=== PATIENT | female | born 1970 ===

== ENCOUNTER 2016-04-26 08:55 | Inpatient (IN) ==
[2016-04-26] MEDS ORDERED: MORPHINE 2 MG/1 ML SYRINGE IV STA (09:50)
[2016-04-26] MEDS ORDERED: ASPIRIN 325 MG TABLET PO STA (09:50)
[2016-04-26] MEDS ORDERED: NITROGLYCERIN SL 0.4 MG TABLET SL PRN (09:50)
[2016-04-26] MEDS ORDERED: ONDANSETRON 4 MG/2 ML VIAL IV STA (09:50)
--- NOTE | 2016-04-26 09:53 | EKG Report ---
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
[2016-04-26 10:05] LABS: Basophils % 0.3 % (0.0-0.8); Eosinophils # 0.1 10*3/uL (0.0-0.87); Hematocrit 37.6 VOL% (35.7-47.0); Hemoglobin 12.1 GM/DL (12.0-16.0); Immature Granulocytes % 0.3 %; Immature Granulocytes Absolute 0.02 #; Lymphocytes # 1.6 10*3/uL (1.4-4.0); Mean Corpuscular HGB Conc 32.2 GM/DL (32-36); Mean Corpuscular Hemoglobin 29 PG (27-34); Mean Platelet Volume 10.5 FL (9.6-12.0); Monocytes # 0.4 10*3/uL (0.11-0.8); Monocytes % 5.8 % (1.7-12.7); Neutrophils # 3.9 10*3/uL (1.4-7.4); Neutrophils % 64.6 % (38.7-73.9); Platelet Count 294 10*3/uL (130-400); Red Blood Count 4.18 10*6/uL (3.8-5.5); Red Cell Distribution Width 12.3 % (9.3-17.3); White Blood Count 6.1 10*3/uL (4.5-13.71)
[2016-04-26] MEDS ORDERED: ONDANSETRON 4 MG/2 ML VIAL ONE (10:25)
[2016-04-26] MEDS ORDERED: ASPIRIN 325 MG TABLET ONE (10:26)
[2016-04-26] MEDS ORDERED: MORPHINE 2 MG/1 ML SYRINGE ONE (10:26)
--- NOTE | 2016-04-26 10:33 | XRay Report ---
History: Pain in chest and neck, radiating to left arm. History of hypertension Date: 04/26/2016 Study: Chest x-ray PA and lateral Comparison exam: No previous chest x-ray available The cardiomediastinal silhouette and pulmonary vasculature are unremarkable. The lungs and pleural spaces are clear. The osseous structures are unremarkable. Impression: No acute cardiopulmonary process PROCEDURE INTERPRETED AT [facility] DEPARTMENT OF RADIOLOGY Final Report Signed by: Dr. Nancy Gaona
[2016-04-26 10:48] LABS: Alanine Aminotransferase 23 U/L (13-56); Albumin 3.6 G/DL (3.4-5.0); Alkaline Phosphatase 97 U/L (45-117); Aspartate Amino Transferase 17 U/L (0-37); Bilirubin,Total < 0.39 MG/DL (0.2-1.0); Blood Urea Nitrogen 9 MG/DL (7-18); Calcium 8.6 MG/DL (8.5-10.1); Glucose 205 MG/DL (74-106); Magnesium 1.7 MG/DL (1.8-2.4); Osmolality,Calculated 285.3 MOS/KG (273-304); Sodium 141 MMOL/L (136-145); Total Protein 7.4 G/DL (6.4-8.3)
[2016-04-26] MEDS ORDERED: MAGNESIUM SULF RIDER 2 GM in PREMIX 1 EACH IV STA (12:09)
[2016-04-26] MEDS ORDERED: NITROGLYCERIN 2% OINT 1 INCH/GM PACK TOP STA (12:10)
--- NOTE | 2016-04-26 13:21 | EKG Report ---
Stationary ECG Study [facility] ER Test Date: 04/26/2016 1:19:09 PM Pat Name: CRESCENCIO FRIEDMAN Department: Room: Gender: F Dental Insurance Coordinator: DANILO : 1970 Requested by: Vanessa Shah Order Number: [id number] Reading MD: COCO ARAUZ Intervals [place] Rate: 73 P: 54 [place]: 152 QRS: 45 QRSD: 103 T: 51 QT: 418 QTc: 444 Interpretive Statements SINUS RHYTHM Electronically Signed On 04-26-16 14:02:07 HUMAN RESOURCE ASSISTANT by COCO ARAUZ [email or web address]
--- NOTE | 2016-04-26 13:26 | Emergency Department Note ---
Dung Amaya Jamie, am scribing for, and in the presence of, Vanessa Shah DO 09:45. IPablo Catherine, DO, personally performed the services described in this documentation, ascribed by Marc Razo in my presence, and it is both accurate and complete [id number] . Arrival - Arrival Chief Complaint: Chest Pain Stated Complaint: chest heaviness/ left shoulder pain ED Nursing Triage Note: C/O HAVING CHEST PAIN SINCE 1800 LAST PM, STATES SHE FEELS A FULLNESS IN HER CHEST AND HER NECK, DENIES HAVING NAUSEA., STATES THE PAIN IS RADIAITING TO THE LEFT ARM AND THE UPPER BACK , EKG OBTAINED AT TIME OF TRIAGE Mode of Arrival: Ambulatory Limitations: No Limitations Source: Patient, RN Notes Reviewed Time Seen by Provider: 04/26/16 09:10 - History of Present Illness HPI Narrative: patient here for evaluation of substernal chest pain and pressure - started yesterday and has persisted and is not improving and just does not feel well. Is a diabetic and has HTN and high cholesterol. She reports a fullness in her chest. Onset (ago): day(s) (1) Consistency: constant Severity: moderate Severity scale (1-10): 4 Quality: fullness Date of Last Menstrual Period: MENAPAUSE Allergies/Adverse Reactions: Allergies Allergy/AdvReac Type Severity Reaction Status Date / Time No Known Allergies Allergy Unverified 04/26/16 09:03 Home Medications: Home Medications Medication Instructions Recorded Confirmed Type Hum Insulin NPH/Reg Insulin Hm 20 unit SUBCUT BID 04/26/16 04/26/16 History [NovoLIN 70/30] Ibuprofen Tab [Motrin Tab] 800 mg PO TID 04/26/16 04/26/16 History Lisinopril 10 mg PO DAILY 04/26/16 04/26/16 History Metformin HCl 1,000 mg PO BID 04/26/16 04/26/16 History Oxycodone HCl/Acetaminophen 0.5 each PO BID PRN 04/26/16 04/26/16 History [Oxycodon-Acetaminophen 7.5-325] Pravastatin Sodium 40 mg PO BEDTIME 04/26/16 04/26/16 History glipiZIDE [Glipizide] 10 mg PO BID 04/26/16 04/26/16 History Review of System - Review of System 12 point system: reviewed and no additional remarkable complaints except as stated - Review of System Constitutional: Absent: chills, diaphoresis, fever, weakness Eyes: Absent: vision change Respiratory: Absent: cough, respiratory distress Cardiovascular: Present: chest pain. Absent: dyspnea on exertion Gastrointestinal: Absent: abdominal pain, nausea, vomiting, diarrhea, constipation Musculoskeletal: Present: arm pain (Left ), neck pain. Absent: joint swelling Skin: Absent: rash, change in color Neurological: Absent: headache, weakness, numbness, confusion Hematological/Lymphatic: Absent: easy bleeding ( ), easy bruising Medical,Surgical,& Family Hx - Medical History Cardio: History of: Hypertension Endocrine: History of: Diabetes Mellitus (IDDM), Diabetes Mellitus (NIDDM) - Surgical History Surgical History: noncontributory - Family History Family History: Reports;: Family Diabetes, Family Hypertension - Social History Smoking Status: Smoker, status unknown Frequency of Alcohol Use: None Type of Drug Use: None Marital Status: Unknown Functional capacity: independent ambulation Exam Vital Signs: Vital Signs Temperature 98.0 F 04/26/16 08:56 Pulse Rate 100 H 04/26/16 08:56 Respiratory Rate 20 04/26/16 08:56 Blood Pressure 176/78 04/26/16 08:56 O2 Sat by Pulse Oximetry 98 04/26/16 08:56 - General General appearance: alert, in no apparent distress - Head Head exam: Present: atraumatic, normocephalic, normal inspection - Eye Eye exam: Present: normal appearance, PERRL, EOMI - ENT ENT exam: Present: normal exam, normal oropharynx, mucous membranes moist - Neck Neck exam: Present: normal inspection, full ROM - Chest Chest inspection: Present: normal inspection, symmetric chest wall rise, other ( no reproducable pain to my exam) - Respiratory Respiratory exam: Present: normal lung sounds bilaterally - Cardiovascular Cardiovascular exam: Present: regular rate, normal rhythm, normal heart sounds - Abdominal Exam Abdominal exam: Present: soft, normal bowel sounds. Absent: tenderness, guarding, rebound, diminished bowel sounds - Extremities Exam Extremities exam: Present: normal inspection, full ROM, normal capillary refill. Absent: tenderness, pedal edema - Back Exam Back exam: Present: normal inspection, full ROM - Neurological Exam Neurological exam: Present: alert, oriented X3, CN II-XII intact - Psychiatric Psychiatric exam: Present: normal affect, normal mood - Skin Skin exam: Present: warm, dry, intact, normal color Course - Reevaluation(s) Reevaluation #1: she is some better - not really much change in the er and will need admission adn R/O due to her risk profile - Consultations Consultation #1: Dr. Gilbert Time: 13:00 Results - Labs CBC & BMP: 04/26/16 09:52 04/26/16 09:52 Lab Results: I have reviewed the patients labs - EKG EKG results: interpreted by ERMD, WNL, sinus rhythm - Impressions no acute process - Diagnostic Findings Procedure: Chest x-ray: report reviewed by me (normal) Disposition Clinical Impression: Chest pain Case discussed with: patient Disposition: Still a Patient Condition: Stable
--- NOTE | 2016-04-26 13:30 | Hospitalist History & Physical ---
Assessment and Plan (1) Chest pain Status: Acute Assessment and plan: Patient with atypical chest pain of unknown etiology sounds more GI to me but she's being admitted to rule out PR with serial isoenzymes and consult cardiology for ischemic screen Current Visit: Yes History of Present Illness Chief complaint: chest pain History of present illness: Ms. Cochran is a 46 year old female patient presents with chest pain she started having some chest pain last night she describes it as a full ulcer chest with up into her left shoulder she takes some pain medicine for low back pain she took some oxycodone he did not make the pain go away she had no associated diaphoresis or eating the pain does make her little bit short of breath she hasn't blacked out she has no palpitations. She's never had pain like this before Home Medications Medication Instructions Recorded Confirmed Type Hum Insulin NPH/Reg Insulin Hm 20 unit SUBCUT BID 04/26/16 04/26/16 History [NovoLIN 70/30] Ibuprofen Tab [Motrin Tab] 800 mg PO TID 04/26/16 04/26/16 History Lisinopril 10 mg PO DAILY 04/26/16 04/26/16 History Metformin HCl 1,000 mg PO BID 04/26/16 04/26/16 History Oxycodone HCl/Acetaminophen 0.5 each PO BID PRN 04/26/16 04/26/16 History [Oxycodon-Acetaminophen 7.5-325] Pravastatin Sodium 40 mg PO BEDTIME 04/26/16 04/26/16 History glipiZIDE [Glipizide] 10 mg PO BID 04/26/16 04/26/16 History Allergies Allergy/AdvReac Type Severity Reaction Status Date / Time No Known Allergies Allergy Unverified 04/26/16 09:03 Medical,Surgical,& Family Hx - Medical History Cardio: History of: Hypertension Endocrine: History of: Diabetes Mellitus (IDDM), Diabetes Mellitus (NIDDM) - Family History Family History: Reports;: Family Diabetes, Family Hypertension - Social History Smoking Status: Smoker, status unknown Frequency of Alcohol Use: None Type of Drug Use: None Review of systems: Constitutional: No fatigue or fever Eyes: No loss of vision or blurred vision Ears: No decreased hearing no ear pain Mouth no lip swelling or sore throat Cardiovascular see hpi Respiratory no cough or shortness of breath GI no abdominal pain or bloating or bleeding : No urinary frequency or hesitancy musculoskeletal: No Arthralgias or back pain Psychiatric: Confusion memory loss Endocrine: No polydipsia or polyuria Hematology: No easy bleeding or bruising 12 point review of systems otherwise unremarkable Exam - Constitutional Vitals: Period Temp Pulse Resp BP Sys/Hill Pulse Ox Last 24 Hr 98.0 F 100 20 176/78 98 Exam: Constitutional: Patient in no apparent distress. Patient is overweight Eyes: Conjunctivae and lids are normal Pupils equal round react to light and accommodation irises are normal HEENT: External ears and nose without lesions masses or scarring Oropharynx without erythema exudates or thrush Neck is supple without masses no jugular venous distention Lungs: Lungs are clear to auscultation and resonant percussion Cardiovascular: Heart auscultation regular rate and rhythm without murmur rub or gallop PMI in the midclavicular line by palpation carotid arteries 2+ without bruits bowel abdomen: Bowel sounds normoactive no masses no rebound or regular tenderness no organomegaly Lymphatic: No anterior posterior cervical or axillary adenopathy Musculoskeletal: No active synovitis no malalignment of the joints good range of motion of upper and lower extremities Skin : normal to inspection and palpation Neurologic: Cranial nerves II through XII intact motor sensory intact DTRs 2+ negative cerebellar signs Psychiatric: Oriented to person place and time normal memory normal mood and affect normal judgment Results - Labs CBC & BMP: 04/26/16 09:52 04/26/16 09:52
[2016-04-26] MEDS ORDERED: ACETAMINOPHEN PO PRN (14:28)
[2016-04-26] MEDS ORDERED: OXYCODONE HCL PO PRN (14:28)
[2016-04-26] MEDS ORDERED: [UNRECOGNIZED DRUG - OTHER] PO PRN (14:28)
[2016-04-26] MEDS ORDERED: ONDANSETRON 4 MG/2 ML VIAL IV PRN (14:28)
[2016-04-26] MEDS ORDERED: ACETAMINOPHEN 325 MG TABLET PO PRN (14:28)
[2016-04-26 15:13] LABS: Troponin I Only < 0.015 NG/ML (0.00-0.045)
[2016-04-26] MEDS: glipiZIDE 10 MG TABLET PO SCH (20:55)
[2016-04-26] MEDS: PRAVASTATIN 40 MG TABLET PO SCH (20:55)
[2016-04-26] MEDS: INSULIN NPH/REGULAR 70/30 100 UNIT/ML SUBCUT SCH (20:56)
[2016-04-26 22:56] LABS: Troponin I Only < 0.015 NG/ML (0.00-0.045)
--- NOTE | 2016-04-27 06:08 | EKG Report ---
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
[2016-04-27 07:12] LABS: Troponin I Only < 0.015 NG/ML (0.00-0.045)
--- NOTE | 2016-04-27 08:42 | Cardiology Consult Note ---
Assessment and Plan (1) Chest pain Status: Acute Assessment and plan: 46yF, presenting with chest pain, typical for angina. This would be of unstable character, no prior exertional symptoms. So far, no evidence of myocardial injury. Borderline septal EKG changes. Her symptoms resolved. Type 2 diabetes mellitus. -Proceed with stress test, nuclear imaging today. Keep nothing by mouth for now. -Continue aspirin, lisinopril, statin. If has CAD, will add metoprolol. BP, HR well controlled. -Keep on telemetry. 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 She developed retrosternal chest pressure, chest pain, and left shoulder pain, with radiation to the left arm yesterday. This lasted for several hours as most moderate in intensity. She denies any strenuous activity before this started. She was unable to sleep well, took a Percocet, without relief. She came to the emergency room for evaluation. EKG showed sinus rhythm, with septal T wave inversion and moderate IVCD. Cardiac biomarkers remained negative. She is currently feeling better. She never had similar pain before. She has occasional back pain, but this was quite different. She had some neck fullness with this pain. This resolved. Her diabetes is well-controlled, she gets regular follow-up of recent hemoglobin A1c was 6.5. She does not have a history of hypertension. She takes pravastatin for hyperlipidemia. Her mother had "heart issues" and was a long-time diabetic. Denies dysphagia, SOB, palpitations, BRYANT. CC: Parag Luna - Home Medications and Allergies Home Medications: Home Medications Medication Instructions Recorded Confirmed Type Hum Insulin NPH/Reg Insulin Hm 20 unit SUBCUT BID 04/26/16 04/26/16 History [NovoLIN 70/30] Ibuprofen Tab [Motrin Tab] 800 mg PO TID 04/26/16 04/26/16 History Lisinopril 10 mg PO DAILY 04/26/16 04/26/16 History Metformin HCl 1,000 mg PO BID 04/26/16 04/26/16 History Oxycodone HCl/Acetaminophen 0.5 each PO BID PRN 04/26/16 04/26/16 History [Oxycodon-Acetaminophen 7.5-325] Pravastatin Sodium 40 mg PO BEDTIME 04/26/16 04/26/16 History glipiZIDE [Glipizide] 10 mg PO BID 04/26/16 04/26/16 History Allergies/Adverse Reactions: Allergies Allergy/AdvReac Type Severity Reaction Status Date / Time No Known Allergies Allergy Unverified 04/26/16 09:03 12 point system: reviewed and no additional remarkable complaints except as stated Medical,Surgical,& Family Hx - Medical History Cardio: History of: Hypertension Endocrine: History of: Diabetes Mellitus (IDDM), Diabetes Mellitus (NIDDM), Dyslipidemia Musculoskeletal: History of: Back/Neck Problems (bulging disk) - Surgical History Reproductive Surgeries: Surgical HX of;: Breast Surgery (reduction) Orthopedic Surgeries: Surgical HX of;: Orthopedic Surgery (left rotator cuff) - Family History Family History: Reports;: Family Diabetes, Family Hypertension - Social History Smoking Status: Never smoker Frequency of Alcohol Use: None Type of Drug Use: None Physical Examination Vital Signs Temp Pulse Resp BP Pulse Ox 98.0 F 100 H 20 176/78 98 04/26/16 08:56 04/26/16 08:56 04/26/16 08:56 04/26/16 08:56 04/26/16 08:56 General: Present: Appears Well, No Apparent Distress HEENT: Present: Normocephaly, Mucus Membranes Moist Neck: Present: Supple Neck, No JVD/HJR, No Thyromegaly Cardiac: Present: Reg Rate and Rhythm, Regular Rate, Regular Rhythm, No Murmur Lungs: Present: Normal Exam, Normal Breath Sounds, No Wheeze, Rales, Rhonchi Neuro: Present: Grossly Intact Abdomen: Present: Soft, Active Bowel Sounds, No Masses, No Pulsations/Bruits Skin: Present: Clear Musculoskeletal: Present: No Pain Extremities: Present: No Clubbing, No Cyanosis, No Edema Result/EKG - Labs CBC & BMP: 04/26/16 09:52 04/26/16 09:52 Lab Results: I have reviewed the past 24 hour labs Labs: Laboratory Results - last 24 hr 04/26/16 04/26/16 04/26/16 16:17 20:35 22:16 POC Glucose 338 H Total Creatine Kinase 76 CK-MB (CK-2) 1.1 Troponin I < 0.015 < 0.015 04/27/16 04/27/16 06:23 07:33 POC Glucose 189 H Total Creatine Kinase 103 D CK-MB (CK-2) 1.1 Troponin I < 0.015 - EKG EKG results: interpreted by me Specialty Discharge - Follow Up or Referrals - Discharge Medications No Action Oxycodone HCl/Acetaminophen [Oxycodon-Acetaminophen 7.5-325] 0.5 each PO BID PRN PRN Reason: Pain glipiZIDE [Glipizide] 10 mg PO BID Pravastatin Sodium 40 mg PO BEDTIME Lisinopril 10 mg PO DAILY Ibuprofen Tab [Motrin Tab] 800 mg PO TID Metformin HCl 1,000 mg PO BID Hum Insulin NPH/Reg Insulin Hm [NovoLIN 70/30] 20 unit SUBCUT BID
[2016-04-27] MEDS: PANTOPRAZOLE 40 MG TABLET PO SCH ×2 (09:18→14:20)
[2016-04-27] MEDS: glipiZIDE 10 MG TABLET PO SCH ×3 (09:18→20:40)
[2016-04-27] MEDS: ASPIRIN EC 81 MG TABLET PO SCH ×2 (09:18→14:20)
[2016-04-27] MEDS: LISINOPRIL 10 MG TABLET PO SCH ×2 (09:18→14:20)
[2016-04-27] MEDS: INSULIN NPH/REGULAR 70/30 100 UNIT/ML SUBCUT SCH ×3 (09:18→20:40)
--- NOTE | 2016-04-27 11:52 | Event Note ---
Underwent cardiolyte stress testing without complaints of chest pain or SOB. Good exercise tolerance. Achieved THR without difficulty. No arrythmia or EKG changes noted. Now to Nuclear Medicine for final scan. Dr. Feliciano to read, interpret and advise.
--- NOTE | 2016-04-27 15:23 | Nuclear Medicine Report ---
PROCEDURE: Exercise stress test. REASON FOR STRESS TEST: Chest pain. PROCEDURE SUMMARY: The patient was injected with 10 mCi of Technetium-99 labeled Sestamibi and rest images were obtained. The patient performed using the standard Ab treadmill protocol. Post exertion, she was injected with 30 mCi of Technetium-99 labeled Sestamibi and post-stress images were obtained. RESULTS: The patient exercised according to the Ab treadmill stress protocol for 9 minutes and 35 seconds, achieving a work level of maximum 7.5 METS. The resting heart rate of 75 beats per minute joni to a maximal heart rate of 169 beats per minute, representing 97% to the maximum, age-predicted heart rate. The resting blood pressure of 142/90 mmHg joni to a maximum blood pressure of 138/86 mmHg. The exercise test was stopped due to the target heart rate achieved. There was no chest pain. Rest EKG shows sinus rhythm, with T wave inversion in 1 and Q wave in III and aVF. There were no significant ST-T changes at rest and post-rest. Gated and post-exertional stress and perfusion images were reviewed. There are no significant motion artifacts on the rest images and there is minimal motion artifacts on the post-stress images. End- diastolic volume 49 cc, end-systolic volume 13 cc, and calculated left ventricular ejection fraction of 73%. There is no transient post-stress dilatation. There is normal systolic function. Perfusion images show a small area of mildly decreased activity in the apex at rest, which improves post- stress. On a single tomographic image, there is a small area of midly decreased activity post-stress, with normal photon distribution at rest. There are no corresponding wall motion abnormalities. These findings are suggestive of imaging artifacts. There is no evidence of old myocardial disease or reversible ischemia. CONCLUSIONS: CLINICALLY AND ELECTRICALLY NEGATIVE MAXIMAL TREADMILL STRESS TEST. GOOD EXERCISE TOLERANCE FOR AGE. NORMAL HEART RATE AND BLOOD PRESSURE RESPONSE. LOPEZ TREADMILL STRESS SCORE 9. NORMAL LEFT VENTRICULAR SIZE AND SYSTOLIC FUNCTION. NO EVIDENCE OF OLD MYOCARDIAL DISEASE OR REVERSIBLE ISCHEMIA. THIS IS A LOW-RISK TEST. Procedure performed and interpreted at [facility] Department of Radiology. CC: HUNG
--- NOTE | 2016-04-27 16:59 | Hospitalist Progress Note ---
Assessment and Plan (1) Chest pain Problem details: appreciate joint terminal attack controller recs, stress test today, c/w meds Status: Acute Current Visit: Yes (2) Hypomagnesemia Problem details: replete Status: Acute Current Visit: Yes (3) T2DM (type 2 diabetes mellitus) Problem details: insulin regimen, BS checks Status: Acute Current Visit: Yes Qualifiers: Diabetes mellitus complication status: with hyperglycemia (4) Obesity Problem details: rec. D/E Status: Acute Current Visit: Yes Hospitalist: Subjective Interval history: Pt feeling better today, denies CP, sob, N/V/fever/chills, palpitations. No acute events O/N. Pt to go to stress test today. Exam - Constitutional Vitals: Period Temp Pulse Resp BP Sys/Hill Pulse Ox Last 24 Hr 97.1 F-98.8 F 20-84 16-20 97-119/55-70 95-99 Exam: Gen: a&ox3, NAD Neck: no JVD, no LN enlargement Lung: ctab, no wheezing abd: soft, NT heart: s1s2, rrr, no murmur skin: warm, dry Psych: cooperative HEENT: PERRL Results - Labs CBC & BMP: 04/26/16 09:52 04/26/16 09:52 Specialty Discharge - Follow Up or Referrals - Discharge Medications No Action Oxycodone HCl/Acetaminophen [Oxycodon-Acetaminophen 7.5-325] 0.5 each PO BID PRN PRN Reason: Pain glipiZIDE [Glipizide] 10 mg PO BID Pravastatin Sodium 40 mg PO BEDTIME Lisinopril 10 mg PO DAILY Ibuprofen Tab [Motrin Tab] 800 mg PO TID Metformin HCl 1,000 mg PO BID Hum Insulin NPH/Reg Insulin Hm [NovoLIN 70/30] 20 unit SUBCUT BID
[2016-04-27] MEDS ORDERED: MAGNESIUM SULFATE 1 GM/2 ML VIAL IV ONE (17:01)
[2016-04-27] MEDS ORDERED: MAGNESIUM SULFATE 1 GM/2 ML VIAL IM ONE (17:01)
[2016-04-27] MEDS ORDERED: MAGNESIUM SULF RIDER 2 GM in PREMIX 1 EACH IV ONE (19:00)
[2016-04-27] MEDS: PRAVASTATIN 40 MG TABLET PO SCH (20:40)
--- NOTE | 2016-04-27 21:13 | ECHO Report ---
DimasAngelicaAltagracia Exam Date: 04/27/2016 14:41 Referring Physician: Technologist: Flory Frank RDCS Age: 46 Ht (in): Wt (lb): Gender: F Exam [facility]: [facility] Echo Indications: Chest pain, unspecified, Essential (primary) hypertension, IDDM BP: / HR: Rhythm: Sinus Technical Quality: IMPRESSIONS Normal left ventricular cavity size. Normal left ventricular wall thickness. Left ventricular ejection fraction is estimated at 60%, no focal wall motion abnormalities. Normal diastolic function. MEASUREMENTS (Male / Female) Normal Values 2D ECHO LV Diastolic Diameter PLAX 3.9 cm 4.2 - 5.9 / 3.9 - 5.3 cm LV Systolic Diameter PLAX 2.7 cm LV Fractional Shortening PLAX 32.0 % IVS Diastolic Thickness 0.8 cm 0.6 - 1.0 / 0.6 - 0.9 cm LVPW Diastolic Thickness 0.8 cm 0.6 - 1.0 / 0.6 - 0.9 cm RV Internal Dim ED PLAX 2.2 cm Aortic Root Diameter 3.0 cm LA Systolic Diameter LX 2.8 cm 3.0 - 4.0 / 2.7 - 3.8 cm DOPPLER TR Peak Velocity 236.0 cm/s TR Peak Gradient 22.3 mmHg FINDINGS Left Ventricle Normal left ventricular cavity size. Normal left ventricular wall thickness. Left ventricular ejection fraction is estimated at 60%, no focal wall motion abnormalities. Normal diastolic function. Right Ventricle The right ventricle is normal in size and function. Right Atrium The right atrium is normal in size. Left Atrium The left atrium is normal in size. Mitral Valve Morphologically normal mitral valve without significant stenosis or prolapse. There is no mitral regurgitation. Aortic Valve Morphologically normal aortic valve without significant sclerosis or stenosis. There is no aortic regurgitation. Tricuspid Valve Morphologically normal tricuspid valve. Trace to mild tricuspid valve regurgitation. Tricuspid regurgitation velocities suggest a PAP of 32 mmHg. Pulmonic Valve Morphologically normal pulmonic valve. Trace pulmonary valve regurgitation. Pericardium Normal pericardium without effusion. Aorta Normal ascending aorta dimension. Papa Feliciano (Electronically Signed) Final Date: 27 April 2016 21:12
[2016-04-28] MEDS: INSULIN NPH/REGULAR 70/30 100 UNIT/ML SUBCUT SCH (09:15)
[2016-04-28] MEDS: LISINOPRIL 10 MG TABLET PO SCH (09:16)
[2016-04-28] MEDS: glipiZIDE 10 MG TABLET PO SCH (09:16)
[2016-04-28] MEDS: ASPIRIN EC 81 MG TABLET PO SCH (09:16)
[2016-04-28] MEDS: PANTOPRAZOLE 40 MG TABLET PO SCH (09:17)
--- NOTE | 2016-04-28 10:02 | Discharge Summary ---
Hospital Course - Hospital Course Hospital Course: Patient is a 46-year-old female that was admitted for a typical chest pain. Patient had a few risk factors including diabetes mellitus and hyperlipidemia and obesity and hypertension. EKG was sinus tachycardia and later sinus rhythm. Cardiac enzymes were negative. The cardiology service was consulted and recommended stress test that was done and revealed no evidence of ischemia. Echocardiogram was also done and showed normal left ventricular ejection fraction of 60%. Patient's symptoms have resolved and patient has been stable otherwise. She was also recommended to improve on her diet and exercise as part of the risk factor stratification in addition to controlling HTN and DM II and pt expressed understanding and adherence to medical therapy. She was recommended to do moderate exercise about 30 minutes a day 5 times a week with a goal of losing between 6-10% of her weight over the next 6-12 months. Pt to follow with PCP for her chronic medical conditions - Time spent with patient Time with patient DS: Greater than 30 minutes Diagnosis - Discharge Diagnosis (1) Chest pain Status: Resolved (2) Hypomagnesemia Status: Acute (3) T2DM (type 2 diabetes mellitus) Status: Chronic (4) Obesity Status: Chronic Specialty Discharge - Follow Up or Referrals Follow up with: Papa Feliciano MD [Physician] - 07/17/16 10:40 am (follow up with Dr Feliciano in 3 months.) - Discharge Medications New Nitroglycerin Sl Tab [Nitrostat] 0.4 mg SL Q5M PRN #14 tablet PRN Reason: Chest Pain Aspirin EC Tab 81 mg PO DAILY 30 Days Continue glipiZIDE [Glipizide] 10 mg PO BID Pravastatin Sodium 40 mg PO BEDTIME Lisinopril 10 mg PO DAILY Metformin HCl 1,000 mg PO BID Hum Insulin NPH/Reg Insulin Hm [NovoLIN 70/30] 20 unit SUBCUT BID Discontinued Oxycodone HCl/Acetaminophen [Oxycodon-Acetaminophen 7.5-325] 0.5 each PO BID PRN PRN Reason: Pain Ibuprofen Tab [Motrin Tab] 800 mg PO TID Discharge Plan - Discharge Data Disposition: Disch To Home/Self Care Condition at Discharge: Stable Discharge Diet: diabetic diet Activity: resume usual activities as tolerated Driving: no restrictions Contact your physician if you experience:: Shortness of breath - Discharge Medications Continue glipiZIDE [Glipizide] 10 mg PO BID Pravastatin Sodium 40 mg PO BEDTIME Lisinopril 10 mg PO DAILY Metformin HCl 1,000 mg PO BID Hum Insulin NPH/Reg Insulin Hm [NovoLIN 70/30] 20 unit SUBCUT BID Discontinued Ibuprofen Tab [Motrin Tab] 800 mg PO TID No Action Oxycodone HCl/Acetaminophen [Oxycodon-Acetaminophen 7.5-325] 0.5 each PO BID PRN PRN Reason: Pain - Follow Up or Referral Follow Up: Papa Feliciano MD [Physician] - 07/17/16 10:40 am (follow up with Dr Feliciano in 3 months.) - Forms/Instructions Instructions: Chest Pain (DC) Additional Discharge Instructions: Patient to follow-up with the primary care physician within 1-2 weeks and also follow-up with a steel pourer helper by his recommendation in about 3 months. Patient will also benefit from checking her magnesium level in the blood before appointment with primary care physician. Exam - Constitutional Vitals: Period Temp Pulse Resp BP Sys/Hill Pulse Ox Last 24 Hr 97.1 F-98.8 F 74-88 16-20 94-119/50-63 95-99 Exam: General: Alert oriented 3 no acute distress Lung clear to auscultation bilaterally Heart S1-S2 present no murmurs regular rate and rhythm Abdomen soft nontender nondistended Extremity no edema no cyanosis Skin warm and dry Neck no JVD Discharge Results Labs on day of discharge: Labs from last 24 hours 04/28/16 04/27/16 04/27/16 07:48 19:17 15:28 POC Glucose 151 H 299 H 296 H 04/27/16 13:53 POC Glucose 239 H DS: Provider Date of admission: 04/26/16 13:32 Primary care physician: Whitley Sawyer Attending physician on admission: Javier Aburto MD Consults: 04/26/16 14:28 Consult to Physician [CONS] Routine Comment: Consulting Provider: Cardiology - [facility] Consult to Specialist Group: Cardiology When should Consulting Provider be notified: In am Person Notified: ROMEO Date Notified: 04/27/16 Time Notified: 07:40 04/26/16 14:39 Consult to Pharmacy [CONS] Routine Reason for Pharmacy Consult: Adjust Meds Renal Funct Discharging clinician: Parag Luna Expected date of discharge: 04/28/16 (patient to be seen by the steel pourer helper before D/C)
--- NOTE | 2016-04-28 11:09 | Cardiology Progress Note ---
<Ramila Singh E - Last Filed: 04/28/16 11:04> Assessment and Plan - Time spent with patient Time spent with patient: Less than 30 minutes (1) Dyslipidemia Status: Chronic Assessment and plan: Continue lipid-lowering agent. Current Visit: Yes (2) Chest pain Problem details: appreciate ecommerce project manager recs, stress test today, c/w meds Status: Resolved Assessment and plan: Noncardiac in nature. Current Visit: Yes (3) T2DM (type 2 diabetes mellitus) Problem details: insulin regimen, BS checks Status: Chronic Assessment and plan: Continue current plan of care. 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 She had never seen cardiology before. She presented to the emergency department retrosternal chest pressure, pain and left shoulder pain. She underwent stress testing which revealed no evidence of reversible ischemia. Her diabetes is well-controlled, she gets regular follow-up of recent hemoglobin A1c was 6.5. She does not have a history of hypertension. She takes pravastatin for hyperlipidemia. Her mother had "heart issues" and was a long-time diabetic. EF 60%. Her chest pain is noncardiac in nature. From a cardiac standpoint, she stable for discharge. She was admitted to attending we will defer further workup of noncardiac chest pain to attending. She will be given a follow-up appointment with Dr. Feliciano in approximately 3 months. Exam (Progress Note) - Constitutional Vitals: Period Temp Pulse Resp BP Sys/Hill Pulse Ox Last 24 Hr 97.1 F-98.8 F 74-88 16-20 94-119/50-63 95-99 Exam: General: Appears well with no apparent distress. Pleasant and cooperative. Appears comfortable. HEENT: PERRL, normocephalic, atraumatic. Mucous membranes moist. No jaundice noted. Conjunctiva moist and clear, sclerae anicteric Neck: No JVD/HJR, no thyromegaly or lymphadenopathy noted. No carotid bruit appreciated Cardiac: Regular rate and rhythm. No murmur rub or gallop. Lungs: Clear to auscultation without accessory muscle use to assist the respiratory pattern. Not requiring oxygen. Abdomen: Soft, bowel sounds normoactive. Nontender and nondistended. No abdominal bruit or thrill noted. No masses noted. Musculoskeletal: No fluid collection. Decreased range of motion is noted. Extremities: No clubbing, cyanosis noted. No edema noted. Upper extremity pulses 2+. Lower extremity pulses 2+. Capillary refill less than 3 seconds. Skin: No unusual lesions or rashes. No skin breakdown appreciated. Neuro: Awake, alert and oriented 3. Moves all extremities well without hemiparesis or paralysis. No essential tremor is appreciated. Result/EKG - Labs CBC & BMP: 04/26/16 09:52 04/26/16 09:52 Lab Results: I have reviewed the past 24 hour labs Labs: Laboratory Results - last 24 hr 04/27/16 04/27/16 04/27/16 13:53 15:28 19:17 POC Glucose 239 H 296 H 299 H 04/28/16 07:48 POC Glucose 151 H - EKG EKG results: interpreted by me EKG shows: sinus rhythm Specialty Discharge - Follow Up or Referrals Follow up with: Papa Feliciano MD [Physician] - 07/17/16 10:40 am (follow up with Dr Feliciano in 3 months.) - Discharge Medications Continue glipiZIDE [Glipizide] 10 mg PO BID Pravastatin Sodium 40 mg PO BEDTIME Lisinopril 10 mg PO DAILY Metformin HCl 1,000 mg PO BID Hum Insulin NPH/Reg Insulin Hm [NovoLIN 70/30] 20 unit SUBCUT BID Discontinued Ibuprofen Tab [Motrin Tab] 800 mg PO TID No Action Oxycodone HCl/Acetaminophen [Oxycodon-Acetaminophen 7.5-325] 0.5 each PO BID PRN PRN Reason: Pain <Papa Feliciano - Last Filed: 04/28/16 14:31> Assessment and Plan (1) Chest pain Problem details: appreciate ecommerce project manager recs, stress test today, c/w meds Status: Resolved Current Visit: Yes (2) T2DM (type 2 diabetes mellitus) Problem details: insulin regimen, BS checks Status: Chronic Current Visit: Yes Qualifiers: Diabetes mellitus complication status: with hyperglycemia (3) Obesity Problem details: rec. D/E Status: Chronic Current Visit: Yes Exam (Progress Note) - Constitutional Vitals: Period Temp Pulse Resp BP Sys/Hill Pulse Ox Last 24 Hr 97.1 F-98.8 F 74-97 16-20 94-119/50-67 94-99 Result/EKG - Labs CBC & BMP: 04/26/16 09:52 04/26/16 09:52 Labs: Laboratory Results - last 24 hr 04/27/16 04/27/16 04/28/16 15:28 19:17 07:48 POC Glucose 296 H 299 H 151 H
[2016-04-28 15:58] VITALS: BP 103/63
== END 2016-04-28 16:23 | disposition home or self-care (01) | DRG 313 ==
LOC: N.ED 08:55 → N.EDINP 13:32 → SUATTDRO 13:32 → N.EDINP 14:14 → N.TELES 14:30
PROVIDERS: ADMIT Internal Medicine Pulmonary Disease; ATTEND Student in an Organized Health Care Education/Training Program